=== PATIENT | male | born 1975 | race Caucasian/White ===

== ENCOUNTER → 2022-03-31 | Outpatient (CLI) | payer SELFPAY ==
--- NOTE | 2022-03-31 09:37 | MR ---
EXAMINATION TYPE: MR knee RT wo con DATE OF EXAM: 03/31/2022 COMPARISON: None HISTORY: Ayad. knee pain TECHNIQUE: Multiplanar, multisequence imaging of the right knee is performed without IV contrast. FINDINGS: Exam is limited by motion artifact. There is a large suprapatellar bursal fluid. There is additional fluid collection with mixed signal characteristics anterior to the tibial tubercle which may represe nt a small localized hematoma or fluid collection with hemorrhagic component. Correlate for history o f prior trauma. Patellar and quadriceps tendons intact. There is prepatellar soft tissue edema. Assessment of the menisci limited due to motion. Grossly the lateral menisci are intact. There is to be abnormal signal extending to the articular surface of the posterior horn medial meniscus suggestiv e of tear. Grossly the anterior cruciate, posterior cruciate, medial collateral and lateral collateral ligaments are intact There is hypertrophic spurring and narrowing in the knee joint along the medial margin. There is a large area of marrow edema or contusion involving the medial femoral condyle and articular surface measuring 2 cm. There appears to be a localized area of cartilaginous loss at this level com patible with chondromalacia. There is a small Dale's cyst measuring less than a centimeter in AP and transverse dimension but ext ending approximately 4 cm and a craniocaudal dimension. Hypertrophic arthropathy of the patellofemoral joint with scattered areas of marrow edema likely reac tive. 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 IMPRESSION: 1. Limited assessment due to motion artifact demonstrates changes of osteoarthritis. Complete loss of cartilage of the patellofemoral joint and a localized loss of cartilage involving the medial femoral articular surface compatible with chondromalacia. Large 2 cm bone marrow edema or contusion involvin g the medial distal femur. Correlate for history of prior trauma. 2. Large suprapatellar bursal fluid collection. There is additional fluid collection with mixed signa l characteristics anterior to the tibial tubercle which may represent a small localized hematoma or f luid collection with hemorrhagic component. Correlate for history of prior trauma. This is only parti ally imaged and could be further evaluated with ultrasound if clinically 3. Small popliteal fossa cyst
--- NOTE | 2022-04-01 10:37 | MR ---
EXAMINATION TYPE: MR knee LT wo con DATE OF EXAM: 03/31/2022 COMPARISON: None HISTORY: 46-year-old male with bilateral knee pain. [id number], [id number] TECHNIQUE: Multiplanar, multisequence imaging of the left knee is performed without IV contrast. FINDINGS: The ACL and PCL are intact. There is edema and thickening of the MCL but no discrete tear identified. Small 1.5 cm long area of fluid signal along the myotendinous junction of the popliteus, possible sma ll tear. LCL complex are otherwise intact. There is an oblique tear involving the posterior horn and body of the medial meniscus. Degenerative s purring in the medial compartment with mild to moderate irregular cartilage thinning along the mid we ightbearing aspect of the medial compartment. Lateral meniscus is intact. Overall lateral compartment articular cartilage appears maintained. There is moderate to severe irregular cartilage loss along the medial patellar facet and moderate irr egular cartilage loss along the medial trochlear facet. Extensor mechanism is intact though with focal intermediate signal within the deep proximal patellar tendon fibers suggesting tendinosis. Trace fluid within the deep infrapatellar bursa. There is a mode rate knee joint effusion and mild chronic synovitis. Multilocular ganglion cyst at the origin of the medial head gastrocnemius measuring up to 2.2 cm. Small leaking Dale's cyst measuring 3.7 x 1.7 cm. Marked anterior subcutaneous soft tissue swelling. Normal popliteal artery anatomy with mild generalized muscle volume loss. No suspicious bone marrow r eplacement. IMPRESSION: 1. Oblique tear posterior horn and body of the medial meniscus. Underlying moderate degenerative avalos ge especially along the mid weightbearing aspect of the compartment. 2. Grade 1 MCL sprain. There may be also be a small 1.5 cm long intrasubstance tear at the myotendino us junction of the popliteus muscle. 3. Additional moderate patellofemoral compartmental osteoarthrosis especially along the medial facets . 4. Moderate joint effusion, mild chronic synovitis, and a small leaking Dale's cyst. 5. Pronounced anterior subcutaneous soft tissue edema. Mild proximal patellar tendinosis.
== END | disposition home or self-care (01) ==
LOC: RADMRIMAIN 07:09
DX: M17.11 Unilateral primary osteoarthritis, right knee (principal); M25.461 Effusion, right knee